=== PATIENT | male | born 2005 | race Hispanic/Latino ===

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

== ENCOUNTER 2024-10-27 23:22 | Emergency (ER) | payer OTHER ==
[~2024-10-27] VITALS: Ht 167.6 cm; Wt 54.0 kg
[2024-10-27] MEDS ORDERED: TETRACAINE HCL 0.5 %/4 ML SOL OS ONE (23:50)
[2024-10-27] MEDS ORDERED: FLUORESCEIN SODIUM 1 MG EA OS ONE (23:50)
[2024-10-28] MEDS ORDERED: FLUORESCEIN SODIUM 1 MG EA ONE (00:16)
[2024-10-28] MEDS ORDERED: ERYTHROMYCIN OPTHALMIC 5 MG/GM TUBE OS ONE (00:35)
[2024-10-28 00:45] VITALS: BP 110/67
== END 2024-10-28 00:45 | disposition home or self-care (01) | DRG 125 ==
LOC: ED 23:22
PROC: 08C1XZZ Extirpation of Matter from Left Eye, External Approach (ICD-10-PCS; principal; 2024-10-28)
PROC: 08C0XZZ Extirpation of Matter from Right Eye, External Approach (ICD-10-PCS; 2024-10-28)
DX: T15.92XA Foreign body on external eye, part unspecified, left eye, initial encounter (principal); T15.91XA Foreign body on external eye, part unspecified, right eye, initial encounter; W44.C1XA Sharp glass entering into or through a natural orifice, initial encounter; Y93.89 Activity, other specified